=== PATIENT | male | born 1945 | race Caucasian/White ===

== ENCOUNTER 2021-10-06 09:04 | Outpatient (REF) | payer MEDICARE, SELFPAY ==
[2021-10-06 09:28] LABS: MANUAL DIFF FLAG NO
[2021-10-06 10:46] LABS: Basophils Percent Auto 0.3 % (0-2); Eosinophils Absolute Auto 0.1 X10*3/uL (0.0-0.4); Eosinophils Percent Auto 1.1 % (0-4); Hematocrit 44.2 % (42.0-52.0); Imm Gran Abs Auto 0.02 X10*3/uL (0.00-0.03); Imm Gran Pct Auto 0.3 % (0.0-0.4); Lymphocytes Absolute Auto 1.7 X10*3/uL (1.2-4.9); Lymphocytes Percent Auto 26.4 % (20-40); Mean Corpuscular HGB Conc 31.7 g/dl (31.0-36.0); Mean Corpuscular Hemoglobin 27.7 pg (27.0-33.0); Mean Corpuscular Volume 87.4 fL (80.0-98.0); Monocytes Absolute Auto 0.7 X10*3/uL (0.1-1.2); Monocytes Percent Auto 11.2 % (2-11); Neutrophils Absolute Auto 3.9 x10*3/uL (2.0-8.3); Neutrophils Percent Auto 60.7 % (45-73); Platelet Count 205 X10*3/uL (160-400); Red Blood Count 5.06 X10*6/uL (4.60-5.80); Red Cell Distribution Width 14.4 % (11.0-16.0); White Blood Count 6.4 X10*3/uL (4.8-10.8)
[2021-10-06 10:50] LABS: INTERNATIONAL NORM RATIO 1.5 (0.9-1.1); Prothrombin Time 17.1 SEC (9.9-13.0)
[2021-10-06 11:20] LABS: Alanine Aminotransferase 23 U/L (0-40); Albumin Level 3.9 g/dL (3.5-5.0); Alkaline Phosphatase 51 U/L (39-117); Anion Gap 12 (12-20); Aspartate Amino Transferase 23 U/L (5-37); Bilirubin Total 0.7 mg/dL (0.0-1.0); Blood Urea Nitrogen 20 mg/dL (9-16); Calcium 9.7 mg/dL (8.4-10.2); Carbon Dioxide 26 mmol/L (22-29); Chloride 107 mmol/L (96-108); Cholesterol 120 mg/dL; Estimated Glomerular Filt Rate 50; Glucose Fasting 82 mg/dL (60-99); HDL Cholesterol 52 mg/dL; LDL Cholesterol Calculated 55 mg/dl; Potassium 4.7 mmol/L (3.3-5.1); Sodium 140 mmol/L (135-145); Total Protein 6.5 g/dL (6.5-8.0); Triglycerides 65 mg/dL
[2021-10-06 11:31] LABS: Prostate Specific Antigen Scr 0.42 ng/mL (<0.05-4.0)
== END 2021-10-06 09:05 | disposition home or self-care (01) ==
LOC: HO.LAB 09:04
PROVIDERS: PCP Nurse Practitioner Family; Visit Provider Nurse Practitioner Family
DX: Z12.5 Encounter for screening for malignant neoplasm of prostate (principal); E78.5 Hyperlipidemia, unspecified; I48.91 Unspecified atrial fibrillation; I77.810 Thoracic aortic ectasia; I10 Essential (primary) hypertension; E78.00 Pure hypercholesterolemia, unspecified
CPT/HCPCS: 36415; 80053; 80061; 84153; 85025; 85610

== ENCOUNTER → 2021-12-01 09:09 | Outpatient (BNVA) | payer MEDICARE, SELFPAY | PROVIDERS: PCP Nurse Practitioner Family; Referring Provider Nurse Practitioner Family; Visit Provider Internal Medicine Cardiovascular Disease | DX: I48.19 Other persistent atrial fibrillation (principal) | CPT/HCPCS: 93005; 99202 ==

== ENCOUNTER → 2022-01-08 08:47 | Outpatient (REF) | payer MEDICARE, SELFPAY ==
--- NOTE | 2022-01-08 08:50 | CA_ITS ---
Transthoracic Echocardiogram Patient (Last, First, Middle): Troy Dunlap, Gender: Male Date of : 1945 Age: 76 Procedure Date: 01/08/2022 Procedure Type: Transthoracic Echocardiogram Location: OP Height: 170.18 cm Weight: 79.38 kg BSA: 1.91 m2 Heart Rate: bpm BP: 112 / 64 mmHg Needle Punch Machine Operator: RONAN Referring MD: Aren Morris MD Mud Trucker: Aren Morris MD Symptoms: I48.19 - Other persistent atrial fibrillation Study Quality: Adequate ECG Rhythm: Atrial Fibrillation Conclusions: - 1. Zjtl-jj-aqlafoko LV systolic dysfunction with LVEF of 40-45% 2. Mild biatrial enlargement 3. Mild aortic regurgitation and dzsw-bo-wxsvpoga mitral regurgitation 4. Normal RV systolic pressure 5. No pericardial effusion Findings Left Ventricle Normal left ventricular cavity size. There is normal left ventricular wall thickness. The left ventricular systolic function is mild to moderately decreased. The visually estimated ejection fraction is between 40-45%. Diastolic function is indeterminate on the basis of available data. Peak GLS is -13.1 % which is reduced. Right Ventricle Normal right ventricular cavity size. There is mild to moderately decreased right ventricular systolic function. Atria The left atrium is mildly dilated. There is no evidence of interatrial shunt. The right atrium is mildly dilated. Aortic Valve Normal aortic valve structure and function. There is no aortic valve stenosis. There is mild aortic valve regurgitation. Mitral Valve There is mild anterior and posterior mitral leaflet thickening. There is mild to moderate mitral valve regurgitation. There is no mitral valve stenosis. Pulmonic Valve The pulmonic valve was not well visualized. Tricuspid Valve Normal tricuspid valve structure. There is mild tricuspid valve regurgitation. The right ventricular systolic pressure is normal. The right ventricular systolic pressure is 24 mmHg. Normal right atrial pressure. There is no evidence of pulmonary hypertension. Great Vessels The pulmonary artery was not well visualized. There is mild dilatation of the ascending aorta measuring 4.40 cm. Venous The inferior vena cava is normal in size and collapses greater than 50% with inspiration. Pericardium/Pleural There is no evidence of pericardial effusion. Prior Study Comparison No prior study available for comparison. Measurements 2D Linear Measurements IVSd: 1.22 0.6-0.9/0.6-1.0 cm LVIDd: 5.21 3.9-5.3/4.2-5.9 cm LVIDd Index: 2.73 2.4-3.2/2.2-3.1 cm/m2 LVIDs: 3.73 2.0-3.6 cm LVPWd: 0.89 0.7-1.1 cm LA Diam: 4.00 2.7-3.8/3.0-4.0 cm LAIDs Index: 2.09 1.5-2.3 cm/m2 LV Mass: 261.00 67-162/88-224 g LV Mass Index: 136.65 43-95/49-115 g/m2 LVOT Diam: 2.00 3.0+(-)1.3 cm 2D Systolic Function EF 4C: 40.00 >55% EF 2C: 41.20 >55% EF BiP: 42.60 >55% Mitral Valve MR VTI: 1.67 Aortic Valve AoV Pk Matt: 1.12 AoV Mn Matt: 0.80 AoV VTI: 0.21 AoV Pk Grad: 5.00 Aov Mn Grad: 3.00 BROOKE Cont.VTI: 2.45 AI Pk Matt: 3.97 AI VTI: 2.44 AI Brooke: 1.84 AI Alias Matt: 0.39 AI RV - PISA: 37.00 ERO - PISA: 15.00 LVOT LVOT Pk Matt: 0.84 LVOT Mn Matt: 0.66 LVOT VTI: 0.16 LVOT Pk Grad: 3.00 LVOT Mn Grad: 2.00 LVOT Diam: 2.00 LVOT Area: 3.14 Right Ventricle TAPSE (mm): 13.20 TVS' Matt: 9.14 Tricuspid Valve TR Pk Matt: 2.28 TR Pk Grad: 21.00 RA Press: 3.00 RVSP: 24.00 Great Vessels Aorta Sinus of Valsalva: 3.50 2.0-3.5 cm Ao Asc: 4.40 2.1-3.4 cm Pulmonary Valve PV Pk Matt: 0.57 Peak PV Grad: 1.00 Updated in Other Vendor System with Status of Final Aren Morris MD electronically signed on 01/09/2022 3:38:27 PM with status of Final
== END ==
LOC: HO.CARD 08:47
PROVIDERS: Visit Provider Internal Medicine Cardiovascular Disease
DX: I48.19 Other persistent atrial fibrillation (principal)
CPT/HCPCS: 93306; 93356

== ENCOUNTER → 2022-01-19 13:05 | Outpatient (BNVA) | payer MEDICARE, SELFPAY | PROVIDERS: PCP Nurse Practitioner Family; Referring Provider Nurse Practitioner Family; Visit Provider Internal Medicine Cardiovascular Disease | DX: I48.19 Other persistent atrial fibrillation (principal); I42.9 Cardiomyopathy, unspecified; I77.810 Thoracic aortic ectasia; R07.9 Chest pain, unspecified | CPT/HCPCS: 99212 ==

== ENCOUNTER 2022-01-27 09:48 | Day surgery (SDC) | payer MEDICARE, SELFPAY ==
--- NOTE | 2022-01-26 11:39 | HO.ANESPROP2 ---
Documented by User: Fanny Sy NP 01/29/22 14:43 HPI - Anesthesia Eval Consult details Narrative: 76yo M for Cardioversion Eliquis for afib PMFSH Active Problems Active Problems: All Active Problems (Updated 01/19/22 @ 13:36 by Aren Morris MD) Ascending aorta dilation (Acute) Persistent atrial fibrillation (Acute) Cardiomyopathy (Acute) Onychomycosis (Acute) Abnormal skin growth (Acute) Physical exam (Acute) BPH (benign prostatic hyperplasia) (Acute) Open-angle glaucoma (Acute) Hyperlipidemia (Acute) Past Medical History Medical History Ascending aorta dilation Persistent atrial fibrillation Surgical History Surgical History History of hernia repair Social History Social History (Updated 01/27/22 @ 11:06 by Ara Coy MD) Housing: House Alcohol intake: never Patient Tobacco Use Status: Never used Tobacco e-Cigarette/Vaping Use: Former Use Second Hand Smoke Exposure: No Substance Use Type: Marijuana service: No Current occupational status: retired Current occupational exposures/hazards: No Cognitive needs: No Hearing needs: No Vision needs: Yes Meds Allergies Allergy/AdvReac Type Severity Reaction Status Date / Time No Known Allergies Allergy Verified 10/29/21 15:25 Exam Exam Date and Time: January 26, 2022 1139 Pertinent Lab Results Pertinent Lab Results: Laboratory Tests 10/06/21 10/06/21 09:27 09:27 WBC 6.4 Hgb 14.0 Hct 44.2 Plt Count 205 Sodium 140 Potassium 4.7 Chloride 107 Carbon Dioxide 26 BUN 20 H Creatinine 1.38 Narrative Narrative: ECHO 12/2021 Conclusions: - 1. Kggl-ft-hipsciul LV systolic dysfunction with LVEF of 40-45% 2. Mild biatrial enlargement ? 3. Mild aortic regurgitation and zawb-aw-rtgzmdxo mitral ? regurgitation? 4. Normal RV systolic pressure ? 5. No pericardial effusion ? ? EKG 11/2021 atrial fibrillation with slow ventricular response at 55 beats per minute with poor R-wave progression Assessment and Plan Assessment Anesthesia Assessment: Chart Reviewed Documented by User: Ara Coy MD 01/27/22 11:12 HPI - Anesthesia Eval Consult details Narrative: 76yo M for Cardioversion Eliquis for afib. Last dose this am PMFSH Past Medical History Medical History Ascending aorta dilation Persistent atrial fibrillation Family History Family history of problems with anesthesia: No Surgical History Surgical History History of hernia repair History of Problems with Anesthesia: No Social History Social History (Updated 01/27/22 @ 11:06 by Ara Coy MD) Housing: House Alcohol intake: never Patient Tobacco Use Status: Never used Tobacco e-Cigarette/Vaping Use: Former Use Second Hand Smoke Exposure: No Substance Use Type: Marijuana service: No Current occupational status: retired Current occupational exposures/hazards: No Cognitive needs: No Hearing needs: No Vision needs: Yes Meds Allergies Allergy/AdvReac Type Severity Reaction Status Date / Time No Known Allergies Allergy Verified 10/29/21 15:25 Exam Height,Weight and Vital Signs: Height 5 ft 7 in Weight 79.379 kg Vital Signs Temp Pulse Resp BP Pulse Ox O2 Del Method 01/27/22 10:15 97.1 F 60 16 105/63 96 Room Air Airway Mallampati Class: II TM Dist: >3cm Neck ROM: Full Loose/Missing/Broken Teeth: No (No loose or broken teeth per patient) Heart: Irregularly irregular Lungs: CTAB Assessment and Plan Assessment Anesthesia Assessment: Anesthesia Plan Discussed Final Anesthetic Review Family History of Problems with Anesthesia: No History of Problems with Anesthesia: No NPO: Yes ASA Class: III Final Preanesthetic Review: No Changes in Pt Med Stat, Meds/Allgs Chart Reviewed, Consent Obtained/Reviewed and Anes Risks/Benef Reviewed Patient Risk: Intermediate Procedure Risk: Intermediate Assessment/Block/Sedation in SS: Assess/Block/Sedation-SS Anesthetic Plan Anesthetic Plan: GA Disposition: Standard PACU
[2022-01-27] VITALS (9 sets, daily range): BP systolic 83–112; BP diastolic 53–70; PULSE 48–69; RESP 16–20; TEMP 36.2–36.7; O2SAT 94–100; BMI 27.3
--- NOTE | 2022-01-27 10:35 | MHC.SHP ---
Pre-Procedural Eval Section A Date of Service: 01/27/22 The patient is an INPATIENT: No Changes since office visit: Yes Patient answered all questions; No Cold of Flu in the past 2 weeks, No New Medical Problems and No Changes in Medication The History & Physical has been completed within 30 days and I have reviewed it.: Yes Section B Chief Complaint: afib Allergies: Allergies Allergy/AdvReac Type Severity Reaction Status Date / Time No Known Allergies Allergy Verified 10/29/21 15:25 Plan I have reviewed the history and physical and performed a pertinent physical examination on my patient. No changes have occurred unless specified.
[2022-01-27] MEDS: Lactated Ringers 1,000 ML 50 ML IVCONT (10:37)
--- NOTE | 2022-01-27 11:44 | ECG_ITS ---
Test Reason : S/P CARDIOVERSION Blood Pressure : / mmHG Vent. Rate : 069 BPM Atrial Rate : 108 BPM P-R Int : 000 ms QRS Dur : 088 ms QT Int : 434 ms P-R-T Axes : 041 -33 005 degrees QTc Int : 465 ms Normal sinus rhythm with Premature atrial complexes Left axis deviation Minimal voltage criteria for LVH, may be normal variant ( R in aVL ) Cannot rule out Anterior infarct , age undetermined Abnormal ECG No previous ECGs available Referred By: Aren Morris Electronically Signed By:AREN MORRIS MD
--- NOTE | 2022-01-27 11:45 | HO.CARDIVERS ---
Cardioversion Procedure Note Cardioversion Date of Procedure: 01/27/2022 Ordering Provider: Myself Performing Provider: Myself Indication for Procedure: Persistent atrial fibrillation Pre-Op Diagnosis: Same Post-Op Diagnosis: Sinus rhythm Performed with Transesophageal Echo: No History: See my office note Consent: Verbal and Written consent was obtained from the patient before starting and after confirming oral anticoagulation use. The patient was made aware of the risk of synchronized cardioversion including benefits and alternatives Procedure: After consent obtained, cardioversion pads were attached antral posterior configuration and the patient was sedated by the anesthesia team. Once adequate sedation achieved, patient was delivered 200 joules of biphasic synchronized energy in anteroposterior configuration Complications: None Impression: Successful conversion to sinus rhythm Recommendations: 1. 12 lead EKG 2. Continue full oral anticoagulation 3. Follow up in the clinic after Holter monitor
== END 2022-01-27 14:00 | disposition home or self-care (01) ==
PROVIDERS: PCP Nurse Practitioner Family; Visit Provider Internal Medicine Cardiovascular Disease
PROC: 5A2204Z Restoration of Cardiac Rhythm, Single (ICD-10-PCS; principal; 2022-01-27 11:30)
DX: I48.19 Other persistent atrial fibrillation (principal); I42.9 Cardiomyopathy, unspecified; I77.810 Thoracic aortic ectasia; Z79.01 Long term (current) use of anticoagulants; Z79.899 Other long term (current) drug therapy
CPT/HCPCS: 92960; 93005

== ENCOUNTER → 2022-02-02 08:42 | Outpatient (REF) | payer MEDICARE, SELFPAY ==
--- NOTE | ~2022-02-02 | NM_ITS ---
EXERCISE MYOCARDIAL PERFUSION STUDY INDICATION: Atrial fibrillation, cardiomyopathy, assess for coronary disease and ischemia TECHNIQUE: The patient was brought in for an exercise perfusion study on 02/02/2022. Patient performed exercise as per Deshaun protocol and was injected 25 mCi of sestamibi once target heart rate was achieved. Images were obtained using the SPECT gamma camera interlaced with the gating device. Images were obtained in supine position. Resting perfusion study was performed on 02/03/2022. Patient was administered 25 mCi of sestamibi intravenously at rest. Images were then obtained in supine position. Total DLP 95mGy-cm. Images were processed with the software and compared side to side in short axis, horizontal long axis and vertical long axis views. FINDINGS: Raw images were reviewed. The stress perfusion study showed slightly diminished tracer uptake along the inferior wall. There is improvement with CT attenuation correction and hence probably from diaphragmatic attenuation artifact. The gated study shows normal LV systolic function with calculated LVEF of 64%. LV cavity is normal in size. The gated study shows normal wall thickening and contraction of segments. Resting study shows no significant perfusion abnormality. Gating at rest reveals normal wall motion with ejection fraction at 53%. The findings are consistent with no definite reversible or fixed perfusion defects. NM/NM cardiolite stress test IMPRESSION: 1. Myocardial perfusion imaging study shows likely normal myocardial perfusion. 2. Gated LVEF is 64% during stress and 53% during rest. 3. Transient ischemic dilatation not present. EKG component of the test reported separately.
--- NOTE | 2022-02-02 08:44 | CA_ITS ---
Acquisition Time: 2022-02-02 09:56:54 Total Exercise Time: 00:07:04 Test Indications: HX AFIB Medications: Protocol: TAL Max HR: 133 BPM 91% of Pred: 146 BPM Max BP: 170/074 mmHG Max Work Load: 8.6 METS Exercise stress test with exercise with exercise 7 min 4 sec of Tal protocol, achieving 91% MPHR, with mild sob, no chest discomfort, with isolated PACs, PVCs, ventricular cuplets which are increased in stage 3 and early recovery, with normotensive response to exercise, without EKG changes meeting criteria for ischemia. Nuclear images pending. Test reviewed with Dr Morris. Referred By: Aren Morris Overread By: BRAYAN MONGE
== END ==
LOC: HO.CARD 08:42
PROVIDERS: PCP Nurse Practitioner Family; Visit Provider Internal Medicine Cardiovascular Disease
DX: R07.9 Chest pain, unspecified (principal); I48.19 Other persistent atrial fibrillation; I42.9 Cardiomyopathy, unspecified
CPT/HCPCS: 78452; 93017; A9500; J0280; J2785

== ENCOUNTER → 2022-02-10 14:04 | Outpatient (REF) | payer MEDICARE, SELFPAY ==
--- NOTE | 2022-02-10 14:06 | HM_ITS ---
* Total monitoring time 2 days and 23 hours. * Underlying rhythm is sinus. Average rate 56/Min. Range 36 to 113/Min. * [place]itz 1 second-degree heart block during sleep hours. * Occasional supraventricular ectopy. [place] of 1.6%. * Rare ventricular ectopy. Minimal burden. One run of 4 beats. * No patient events. MTDD
== END ==
LOC: HO.CARD 14:04
PROVIDERS: PCP Nurse Practitioner Family; Visit Provider Internal Medicine Cardiovascular Disease
DX: I48.19 Other persistent atrial fibrillation (principal)
CPT/HCPCS: 93242

== ENCOUNTER → 2022-04-14 14:06 | Outpatient (BNVA) | payer MEDICARE, SELFPAY | PROVIDERS: PCP Nurse Practitioner Family; Referring Provider Nurse Practitioner Family; Visit Provider Nurse Practitioner Family | DX: I48.19 Other persistent atrial fibrillation (principal); I77.810 Thoracic aortic ectasia; I42.9 Cardiomyopathy, unspecified | CPT/HCPCS: 93005; 99212 ==

== ENCOUNTER → 2022-05-25 15:35 | Outpatient (REF) | payer MEDICARE, SELFPAY ==
--- NOTE | 2022-05-25 15:43 | CA_ITS ---
Transthoracic Echocardiogram Patient (Last, First, Middle): Troy Dunlap R Gender: Male Date of : 1945 Age: 76 Procedure Date: 05/25/2022 Procedure Type: Transthoracic Echocardiogram Location: OP Height: 170.18 cm Weight: 82.56 kg BSA: 1.94 m2 Heart Rate: bpm BP: 118 / 60 mmHg Coroner: VH Referring MD: Tawnya Leiva HEEL SANDER RUBBERVargas Symptoms: I42.9 - Cardiomyopathy, unspecified Study Quality: Good ECG Rhythm: Sinus Conclusions: - The left ventricular systolic function is normal. The visually estimated ejection fraction is between 55-60%. - The basal inferior segment is hypokinetic. Findings Left Ventricle Normal left ventricular cavity size. There is mildly increased left ventricular wall thickness. The left ventricular systolic function is normal. The visually estimated ejection fraction is between 55-60%. LV peak GLS -17.8%. Wall Motion Rest Echo Findings The basal inferior segment is hypokinetic. Right Ventricle Normal right ventricular cavity size and systolic function. Venous The inferior vena cava is normal in size and collapses greater than 50% with inspiration. Prior Study Comparison Changes noted compared to prior study dated: 01/08/2022. Improved LVEF. See comment on wall motion. Measurements 2D Linear Measurements IVSd: 1.12 0.6-0.9/0.6-1.0 cm LVIDd: 5.22 3.9-5.3/4.2-5.9 cm LVIDd Index: 2.69 2.4-3.2/2.2-3.1 cm/m2 LVIDs: 3.51 2.0-3.6 cm LVPWd: 1.12 0.7-1.1 cm LV Mass: 283.84 67-162/88-224 g LV Mass Index: 146.31 43-95/49-115 g/m2 LVOT Diam: 2.00 3.0+(-)1.3 cm 2D Systolic Function EF 4C: 55.60 >55% EF 2C: 51.40 >55% EF BiP: 53.40 >55% LVOT LVOT Pk Matt: 1.13 LVOT Mn Matt: 0.72 LVOT VTI: 0.27 LVOT Pk Grad: 5.00 LVOT Mn Grad: 3.00 LVOT Diam: 2.00 LVOT Area: 3.14 Right Ventricle TAPSE (mm): 25.00 TVS' Matt: 10.00 Updated in Other Vendor System with Status of Final Archie Gray MD electronically signed on 05/26/2022 12:55:57 PM with status of Final
== END ==
LOC: HO.CARD 15:35
PROVIDERS: PCP Nurse Practitioner Family; Visit Provider Nurse Practitioner Family
DX: I42.9 Cardiomyopathy, unspecified (principal)
CPT/HCPCS: 93308; 93356

== ENCOUNTER 2022-07-07 08:56 | Outpatient (REF) | payer MEDICARE, SELFPAY ==
[2022-07-07 10:18] LABS: Hematocrit 44.5 % (42.0-52.0); Hemoglobin 14.2 g/dl (14.0-18.0); Mean Corpuscular HGB Conc 31.9 g/dl (31.0-36.0); Mean Corpuscular Hemoglobin 28.9 pg (27.0-33.0); Mean Corpuscular Volume 90.4 fL (80.0-98.0); Mean Platelet Volume 10.7 fL (9.4-12.4); Platelet Count 205 X10*3/uL (160-400); Red Blood Count 4.92 X10*6/uL (4.60-5.80); Red Cell Distribution Width 12.5 % (11.0-16.0); White Blood Count 6.5 X10*3/uL (4.8-10.8)
[2022-07-07 11:53] LABS: Alanine Aminotransferase 17 U/L (0-40); Albumin Level 4.3 g/dL (3.5-5.0); Alkaline Phosphatase 73 U/L (39-117); Anion Gap 12 (12-20); Aspartate Amino Transferase 23 U/L (5-37); Bilirubin Total 0.7 mg/dL (0.0-1.0); Blood Urea Nitrogen 21 mg/dL (9-16); Calcium 9.5 mg/dL (8.4-10.2); Carbon Dioxide 27 mmol/L (22-29); Chloride 106 mmol/L (96-108); Cholesterol 135 mg/dL; Estimated Glomerular Filt Rate > 60; Glucose Fasting 89 mg/dL (60-99); HDL Cholesterol 59 mg/dL; LDL Cholesterol Calculated 66 mg/dl; Potassium 4.9 mmol/L (3.3-5.1); Sodium 140 mmol/L (135-145); Total Protein 7.2 g/dL (6.5-8.0); Triglycerides 52 mg/dL
[2022-07-07 12:15] LABS: TSH reflex Free T4 1.89 uIU/mL (0.32-4.0); Vitamin B12 666 pg/mL (200-900); Vitamin D 25-OH Total 32.7 ng/mL (>30)
== END 2022-07-07 08:57 | disposition home or self-care (01) ==
LOC: HO.LAB 08:56
PROVIDERS: PCP Nurse Practitioner Family; Visit Provider Nurse Practitioner Family
DX: I48.19 Other persistent atrial fibrillation (principal); N40.0 Benign prostatic hyperplasia without lower urinary tract symptoms; E78.5 Hyperlipidemia, unspecified
CPT/HCPCS: 36415; 80053; 80061; 82306; 82607; 82746; 84443; 85027

== ENCOUNTER → 2022-09-13 14:36 | Outpatient (BNVA) | payer MEDICARE, SELFPAY | PROVIDERS: PCP Nurse Practitioner Family; Referring Provider Nurse Practitioner Family; Visit Provider Internal Medicine Cardiovascular Disease | DX: I77.810 Thoracic aortic ectasia (principal); I48.19 Other persistent atrial fibrillation; I42.9 Cardiomyopathy, unspecified; Z98.890 Other specified postprocedural states | CPT/HCPCS: 99212 ==

== ENCOUNTER 2023-02-23 07:13 | Outpatient (REF) | payer MEDICARE, SELFPAY ==
[2023-02-23 07:29] LABS: MANUAL DIFF FLAG NO
[2023-02-23 08:19] LABS: Basophils Percent Auto 0.4 % (0-2); Eosinophils Absolute Auto 0.1 X10*3/uL (0.0-0.4); Eosinophils Percent Auto 2.5 % (0-4); Hematocrit 40.7 % (42.0-52.0); Hemoglobin 13.6 g/dl (14.0-18.0); Imm Gran Abs Auto 0.02 X10*3/uL (0.00-0.03); Imm Gran Pct Auto 0.4 % (0.0-0.4); Lymphocytes Absolute Auto 1.3 X10*3/uL (1.2-4.9); Lymphocytes Percent Auto 28.6 % (20-40); Mean Corpuscular HGB Conc 33.4 g/dl (31.0-36.0); Mean Corpuscular Hemoglobin 29.1 pg (27.0-33.0); Mean Platelet Volume 9.9 fL (9.4-12.4); Monocytes Absolute Auto 0.6 X10*3/uL (0.1-1.2); Monocytes Percent Auto 12.5 % (2-11); Neutrophils Absolute Auto 2.5 x10*3/uL (2.0-8.3); Neutrophils Percent Auto 55.6 % (45-73); Platelet Count 192 X10*3/uL (160-400); Red Blood Count 4.68 X10*6/uL (4.60-5.80); Red Cell Distribution Width 13.7 % (11.0-16.0); White Blood Count 4.5 X10*3/uL (4.8-10.8)
[2023-02-23 08:59] LABS: Alanine Aminotransferase 17 U/L (0-40); Alkaline Phosphatase 57 U/L (39-117); Anion Gap 9 (12-20); Aspartate Amino Transferase 20 U/L (5-37); Bilirubin Total 0.6 mg/dL (0.0-1.0); Blood Urea Nitrogen 16 mg/dL (9-16); Calcium 9.2 mg/dL (8.4-10.2); Carbon Dioxide 26 mmol/L (22-29); Chloride 109 mmol/L (96-108); Cholesterol 170 mg/dL (<200); Estimated Glomerular Filt Rate > 60; Glucose Fasting 96 mg/dL (60-99); HDL Cholesterol 50 mg/dL (>40); LDL Cholesterol Calculated 110 mg/dL (<100); Potassium 4.3 mmol/L (3.3-5.1); Sodium 140 mmol/L (135-145); Total Protein 6.8 g/dL (6.5-8.0); Triglycerides 54 mg/dL (<150)
[2023-02-23 09:10] LABS: Prostate Specific Antigen 0.14 ng/mL (<0.05-4.0)
[2023-02-23 09:14] LABS: TSH reflex Free T4 2.87 uIU/mL (0.32-4.0); Vitamin D 25-OH Total 46.1 ng/mL (>30)
== END 2023-02-23 07:14 | disposition home or self-care (01) ==
LOC: HO.LAB 07:13
PROVIDERS: PCP Nurse Practitioner Family; Visit Provider Nurse Practitioner Family
DX: Z12.5 Encounter for screening for malignant neoplasm of prostate (principal); I48.19 Other persistent atrial fibrillation; E78.5 Hyperlipidemia, unspecified; N40.0 Benign prostatic hyperplasia without lower urinary tract symptoms; I42.9 Cardiomyopathy, unspecified
CPT/HCPCS: 36415; 80053; 80061; 82306; 84153; 84443; 85025

== ENCOUNTER → 2023-03-16 13:42 | Outpatient (REF) | payer MEDICARE, SELFPAY ==
--- NOTE | 2023-03-16 13:45 | CA_ITS ---
Transthoracic Echocardiogram Patient (Last, First, Middle): Troy Dunlap R Gender: Male Date of : 1945 Age: 77 Procedure Date: 03/16/2023 Procedure Type: Transthoracic Echocardiogram Location: OP Height: 170.18 cm Weight: 79.38 kg BSA: 1.91 m2 Heart Rate: 60 bpm BP: 104 / 60 mmHg Airplane Patrol Pilot: RONAN/JOHN Referring MD: Aren Morris MD Symptoms: I42.9 - Cardiomyopathy, unspecified Study Quality: Adequate ECG Rhythm: Sinus Conclusions: - The left ventricular systolic function is low normal. The calculated ejection fraction is 53% by biplane method. - The basal inferior segment is hypokinetic. - There is mild aortic valve regurgitation. - There is moderate dilatation of the ascending aorta measuring 4.50 cm. Findings Left Ventricle Normal left ventricular cavity size. The left ventricular systolic function is low normal. The calculated ejection fraction is 53% by biplane method. Evidence suggests grade I (mild) diastolic dysfunction. There is mild septal asymmetric hypertrophy. Wall Motion Rest Echo Findings The basal inferior segment is hypokinetic. Right Ventricle Mildly increased right ventricular cavity size. There is normal right ventricular systolic function. Atria Both atria are normal in size. Aortic Valve There is a normal trileaflet aortic valve. There is no aortic valve stenosis. There is mild aortic valve regurgitation. Mitral Valve The mitral valve appears normal. There is trace mitral valve regurgitation. There is no mitral valve stenosis. Pulmonic Valve The pulmonic valve is likely normal. Tricuspid Valve There is no tricuspid valve regurgitation. There is no evidence of pulmonary hypertension. Great Vessels The sinuses of valsalva is normal in size. There is moderate dilatation of the ascending aorta measuring 4.50 cm. Venous The inferior vena cava is normal in size and collapses greater than 50% with inspiration. Pericardium/Pleural There is no evidence of pericardial effusion. Prior Study Comparison Changes noted compared to prior study dated: 05/25/2022. see comment on ascending aorta. Measurements 2D Linear Measurements IVSd: 1.16 0.6-0.9/0.6-1.0 cm LVIDd: 5.16 3.9-5.3/4.2-5.9 cm LVIDd Index: 2.70 2.4-3.2/2.2-3.1 cm/m2 LVIDs: 3.79 2.0-3.6 cm LVPWd: 1.01 0.7-1.1 cm LA Diam: 4.10 2.7-3.8/3.0-4.0 cm LAIDs Index: 2.15 1.5-2.3 cm/m2 LV Mass: 266.70 67-162/88-224 g LV Mass Index: 139.63 43-95/49-115 g/m2 LVOT Diam: 2.10 3.0+(-)1.3 cm 2D Systolic Function EF 4C: 46.50 >55% EF 2C: 58.90 >55% EF BiP: 52.90 >55% Mitral Valve MV Pk E: 0.77 MV PK A: 0.50 MV Decel Time: 223.00 E/A: 1.50 E'Lateral: 7.72 E'Medial: 4.57 E/E' Med: 16.90 E/E' Lat: 10.00 PHT: 65.00 MVA PHT: 3.38 Decel Bell: 3.46 Aortic Valve AoV Pk Matt: 1.42 AoV Mn Matt: 1.01 AoV VTI: 0.34 AoV Pk Grad: 8.00 Aov Mn Grad: 5.00 BROOKE Cont.VTI: 2.35 AI Pk Matt: 3.98 AI Bell: 1.72 LVOT LVOT Pk Matt: 1.05 LVOT Mn Matt: 0.69 LVOT VTI: 0.23 LVOT Pk Grad: 4.00 LVOT Mn Grad: 2.00 LVOT Diam: 2.10 LVOT Area: 3.46 Diastolic Function MV Pk E: 0.77 MV Pk A: 0.50 E/A: 1.50 E'Medial: 4.57 E/E' Med: 16.90 E' Laterial: 7.72 E/E' Lat: 10.00 Right Ventricle TAPSE (mm): 19.80 TVS' Matt: 11.70 Tricuspid Valve TR Pk Matt: 2.33 TR Pk Grad: 22.00 RA Press: 3.00 RVSP: 25.00 Great Vessels Aorta Sinus of Valsalva: 3.40 2.0-3.5 cm Ao Asc: 4.50 2.1-3.4 cm Pulmonary Valve PV Pk Matt: 0.73 Peak PV Grad: 2.00 Updated in Other Vendor System with Status of Final Arcihe Gray MD electronically signed on 03/17/2023 10:31:03 AM with status of Final
== END ==
LOC: HO.CARD 13:42
PROVIDERS: PCP Nurse Practitioner Family; Visit Provider Internal Medicine Cardiovascular Disease
DX: I42.9 Cardiomyopathy, unspecified (principal)
CPT/HCPCS: 93306

== ENCOUNTER → 2023-03-16 13:45 | Outpatient (BNV) | payer MEDICARE, SELFPAY | PROVIDERS: PCP Nurse Practitioner Family; Visit Provider Internal Medicine | DX: I35.1 Nonrheumatic aortic (valve) insufficiency (principal); I42.9 Cardiomyopathy, unspecified | CPT/HCPCS: 93306 ==

== ENCOUNTER 2023-03-23 08:33 | Outpatient (AMB) | payer MEDICARE, SELFPAY ==
[2023-03-23 08:40] VITALS: BP 118/68; PULSE 62; O2SAT 97; BMI 27.7
--- NOTE | 2023-03-23 08:40 | A.OFFPC_ITS ---
Vital Signs 03/23/23 08:40 Height 5 ft 7 in Weight 177 lb 0.4 oz BMI 27.7 BP 118/68 Blood Pressure Location Lt brachial Position Sitting Pulse 62 Pulse Source Pulse Oximeter Pulse Oximetry (%) 97 Oxygen Delivery Method Room Air Intake Visit Reasons: F/U HLD, afib, BPH Allergies No Known Allergies Allergy (Verified 11/16/22 09:26) Medication List - Last Reconciled 03/23/23 by GABINO Hurt apixaban (Eliquis) 5 mg PO BID 90 days brimonidine 0.1% (Alphagan P) 2 drps ophthalmic (eye) BID dorzolamide-timolol 22.3-6.8 mg/mL 1 drp ophthalmic (eye) BID finasteride 5 mg PO DAILY hydrocortisone 2.5% 1 appl topical BID PRN latanoprost 0.005% 1 drp ophthalmic (eye) QPM lidocaine HCl 2% (Lidocaine Viscous) 1 appl mucous membrane BID PRN 14 days rosuvastatin 10 mg PO DAILY tamsulosin 0.4 mg PO DAILY Tobacco use date assessed: 11/16/22 Fall risk assessment: No Falls in past year Last assessed Fall Risk: 03/23/23 Dental Screening Dental Screen Date: 03/23/23 Did you have a dental visit in the last 12 months?: No Did you have a dental problem in the last 6 months where you did not have access to dental care?: No HPI F/U HLD, afib, BPH HPI Details Patient is a 77-year-old male presents today for a routine follow-up.? Medical history significant for AFib - status post cardioversion - followed by [facility], cardiomyopathy,? BPH, hyperlipidemia, and open angle glaucoma-followed by Dr. Pascual.? Patient denies shortness of breath or chest pain. Patient reports intermittent right hip pain, reports about 2 years ago he did have right hip injection, he will notify office if he would like referral to see orthopedics for this, does not take anything for pain. Patient reports that at times he forgets to take rosuvastatin, encouraged compliance with cholesterol medication.? [facility] Medical History Tongue lesion Persistent atrial fibrillation Ascending aorta dilation Surgical History History of hernia repair Social History Housing: House Alcohol intake: never Patient Tobacco Use Status: Never used Tobacco e-Cigarette/Vaping Use: Former Use Second Hand Smoke Exposure: No Substance Use Type: Marijuana service: No Current occupational status: retired Current occupational exposures/hazards: No Cognitive needs: No Hearing needs: No Vision needs: Yes Questionnaire PHQ-9 Over the last 2 weeks, how often have you been bothered by any of the following problems? 1. Little interest or pleasure in doing things: not at all 2. Feeling down, depressed, or hopeless: not at all 3. Trouble falling or staying asleep, or sleeping too much: not at all 4. Feeling tired or having little energy: not at all 5. Poor appetite or overeating: not at all 6. Feeling bad about yourself - or that you are a failure or have let yourself or your family down: not at all 7. Trouble concentrating on things, such as reading the newspaper or watching television: not at all 8. Moving or speaking so slowly that other people could have noticed. Or the opposite - being so fidgety or restless that you have been moving around a lot more than usual: not at all 9. Thoughts that you would be better off or of hurting yourself in some way: not at all Total score: 0 Depression Screening Interpretation: Negative 91552 - PHQ-9 Billing: Yes Source: Developed by Drs. David Ortiz, John Dillon and colleagues, with an educational evelina from [employer]. Thrive Questionnaire Date Thrive assessed: 07/15/22 AUDIT C Alcohol Use Questionnaire (AUDIT-C) 1. How often do you have a drink containing alcohol?: Never 2. How many drinks containing alcohol do you have on a typical day when you are drinking?: 1 or 2 3. How often do you have six or more drinks on one occasion?: Never Total Score: 0 Score Reviewed/Action Taken: No ANA LILIA-7 AMB Questionnaire ANA LILIA-7 Date ANA LILIA - 7 assessed: 11/16/22 Source: Developed by Drs. David Ortiz, John Dillon and colleagues, with an educational evelina from [employer]. Review of Systems Const Denies body aches, Denies chills, Denies fever(s) and Denies headache(s) Eyes Denies change in vision ENT Denies dizziness, Denies otalgia, Denies headache(s), Denies nasal discharge, Denies sinus pain and Denies sore throat Card Denies chest pain, Denies edema, Denies lightheadedness and Denies dyspnea Resp Denies chest congestion, Denies cough and Denies dyspnea GI Denies constipation, Denies diarrhea, Denies nausea and Denies vomiting Denies dysuria Musc Reports back pain, Denies myalgias and Reports arthralgias Skin/Breast Denies lesions and Denies rash Neuro Denies dizziness and Denies headache(s) Physical exam (Primary Care) Vital Signs: Last Vital Signs Pulse 62 03/23/23 08:40 BP 118/68 03/23/23 08:40 Pulse Ox 97 03/23/23 08:40 Oxygen Delivery Method Room Air 03/23/23 08:40 BMI result Body Mass Index 27.7 Tobacco/Smoking Status: Tobacco use Status Tobacco use date assessed 11/16/22 03/23/23 08:45 Patient Tobacco Use Status Never used Tobacco 03/23/23 08:45 e-Cigarette/Vaping Use Former Use 03/23/23 08:45 PHQ-9: PHQ-9 Score PHQ-9: Total score 0 03/23/23 08:45 Depression Screening Interpretation: Negative Thrive Assessment: Date of Thrive Assessment Date Thrive assessed 07/15/22 03/23/23 08:45 Const General: cooperative and no acute distress Orientation/consciousness: patient oriented x3 HENMT Head: Yes normocephalic and Yes atraumatic Face and sinus: Yes sinuses nontender Mouth: oropharynx normal and moist mucous membranes Throat: Yes posterior oropharynx normal Eyes General: appearance normal, both eyes and all related structures Neck Neck: Yes normal visual inspection and Yes full ROM Resp Effort & Inspection: normal respiratory effort and able to speak in complete sentences Auscultation: clear to auscultation bilaterally, no crackles, no rales, no rhonchi and no wheezes Cardio Rate: regular rate Rhythm: regular rhythm Heart sounds: S1 normal heart sound present, S2 normal heart sound present and no murmurs GI Auscultation: normal bowel sounds Skin General skin exam: no rashes or lesions noted Neuro General: patient oriented x3 Gait exam (Neuro): Normal gait present Extrem General: Yes full ROM and No edema Assessment and Plan Assessment & Plan (1) BPH (benign prostatic hyperplasia): Code(s): N40.0 - Benign prostatic hyperplasia without lower urinary tract symptoms Plan: Tamsulosin 0.4 mg daily Finasteride 5 mg daily (2) Hyperlipidemia: Code(s): E78.5 - Hyperlipidemia, unspecified Plan: LDL 110 01/2023 Rosuvastatin 10 mg daily - reinforced compliance Low-cholesterol diet (3) Paroxysmal atrial fibrillation: Code(s): I48.0 - Paroxysmal atrial fibrillation Plan: Eliquis 5 mg b.i.d. Continue to follow-up with cardiology Dr. Morris Patient denies shortness of breath or chest pain Orders: Orders Lipid Panel 3 Months E78.5 - Hyperlipidemia, unspecified Comprehensive [place]. Panel Fast 3 Months E78.5 - Hyperlipidemia, unspecified Complete Blood Count Auto Diff 3 Months E78.5 - Hyperlipidemia, unspecified Medications: Refilled finasteride 5 mg PO DAILY 90 tabs 1RF N40.0 - Benign prostatic hyperplasia without lower urinary tract symptoms Discontinued lidocaine HCl 2% (Lidocaine Viscous) swish and spit out Discontinued Reason: Patient no longer taking 1 appl mucous membrane BID 14 days PRN 100 mL 0RF pain K14.8 - Other diseases of tongue Coding Level of Care Code Est Pt Level 4 (79771) Diagnoses BPH (benign prostatic hyperplasia) N40.0 Hyperlipidemia E78.5 Paroxysmal atrial fibrillation I48.0
== END 2023-03-23 09:14 | disposition home or self-care (01) ==
PROVIDERS: Visit Provider Nurse Practitioner Family
DX: N40.0 Benign prostatic hyperplasia without lower urinary tract symptoms (principal); E78.5 Hyperlipidemia, unspecified; I48.0 Paroxysmal atrial fibrillation
CPT/HCPCS: 99214

== ENCOUNTER 2023-03-28 10:33 | Outpatient (AMB) | payer MEDICARE, SELFPAY ==
[2023-03-28 10:55] VITALS: BP 120/70; PULSE 69; BMI 27.3
--- NOTE | 2023-03-28 10:55 | MHC.OFFVIS ---
Intake Vital Signs 03/28/23 10:55 Height 5 ft 7 in Weight 174 lb 2.643 oz BMI 27.3 BP 120/70 Blood Pressure Location Lt brachial Position Sitting Pulse 69 Intake Visit Reasons: 6 month f/u after an echo Intake Note: 6 month follow-up after echo feeling good ? didn't know he had a [employer] Senior Application Security Consultant Required: No Allergies No Known Allergies Allergy (Verified 11/16/22 09:26) Medication List - Last Reconciled 03/28/23 by Aren Morris MD apixaban (Eliquis) 5 mg PO BID 90 days brimonidine 0.1% (Alphagan P) 2 drps ophthalmic (eye) BID dorzolamide-timolol 22.3-6.8 mg/mL 1 drp ophthalmic (eye) BID finasteride 5 mg PO DAILY hydrocortisone 2.5% 1 appl topical BID PRN latanoprost 0.005% 1 drp ophthalmic (eye) QPM rosuvastatin 10 mg PO DAILY tamsulosin 0.4 mg PO DAILY HPI HPI Comments History of Present Illness Details Troy comes for follow-up. He denies any significant symptoms of chest pain or palpitations. Takes all his medications. Denies any prolonged irregular heartbeat. No lightheadedness, syncope. No exertional chest or shortness of breath. Recent echocardiogram shows stable moderately enlarged ascending aorta at 4.5 cm. [facility] Medical History (Updated 03/28/23 @ 12:15 by Aren Morris MD) Ascending aortic aneurysm Tongue lesion Persistent atrial fibrillation Surgical History History of hernia repair Social History Housing: House Alcohol intake: never Patient Tobacco Use Status: Never used Tobacco e-Cigarette/Vaping Use: Former Use Second Hand Smoke Exposure: No Substance Use Type: Marijuana service: No Current occupational status: retired Current occupational exposures/hazards: No Cognitive needs: No Hearing needs: No Vision needs: Yes Review of Systems Const Denies chills, Denies fatigue, Denies fever(s), Denies frequent falls, Denies weakness, Denies weight gain and Denies weight loss ENT Denies dizziness Card Denies chest pain, Denies leg edema, Denies lightheadedness, Denies palpitations, Denies dyspnea, Denies dyspnea on exertion, Denies orthopnea and Denies other (loss of consciousness) Resp Denies cough, Denies dyspnea and Denies dyspnea on exertion GI Denies hematochezia and Denies change in stool character Musc Denies abnormal gait, Denies muscle weakness, Denies numbness, Denies radiating pain into limb and Denies tingling Neuro Denies abnormal gait, Denies dizziness, Denies frequent falls, Denies numbness, Denies tingling and Denies weakness Endo Denies fatigue and Denies palpitations Physical Exam Vital Signs: Last Vital Signs Pulse 69 03/28/23 10:55 BP 120/70 03/28/23 10:55 BMI result Body Mass Index 27.3 Const General: cooperative, healthy appearing, comfortable and no acute distress Neck Neck: Yes normal visual inspection and Yes no JVD Resp Effort & Inspection: normal respiratory effort Auscultation: clear to auscultation bilaterally, no crackles, no rales, no rhonchi and no wheezes Cardio Jugular venous distension: no JVD Rate: regular rate Rhythm: regular rhythm Heart sounds: S1 normal heart sound present, S2 normal heart sound present, no gallops, no murmurs and no rubs Peripheral pulses: Peripheral pulses 2+ throughout GI Inspection: Yes normal to inspection Extrem General: Yes normal to inspection, No no pedal edema and No calf tenderness Psych Appearance: grossly normal Mental Status: mental status grossly normal Speech and movement: Normal speech and movement present Office Procedures EKG Details: EKG shows normal sinus rhythm with left axis deviation with poor R-wave progression most likely lead placement with normal intervals [id number], Complete Assessment & Plan Assessment & Plan (1) Ascending aortic aneurysm: Code(s): I71.21 - Aneurysm of the ascending aorta, without rupture Plan: Ascending aortic aneurysm at 4.5 cm. Has remained stable. We discussed about pathophysiology ascending aortic aneurysm. Advised to avoid sudden strenuous isometric exercise. Maintain regular activity level. Continue aggressively the blood pressure. Follow-up annually by echocardiogram. No surgical interventions required at this point in time. Advised to screen his kids (2) Paroxysmal atrial fibrillation: Code(s): I48.0 - Paroxysmal atrial fibrillation Plan: Paroxysmal atrial fibrillation which has remained stable. Continue to monitor clinically. No antiarrhythmic drug therapy required at this point time. Avoidance of stimulants was discussed advised to call me with any new symptoms. Continue full oral anticoagulation, currently on Eliquis 5 mg b.i.d.. Semi annual renal function test should be pursued. Will follow up in the clinic in 1 year's time, sooner p.r.n.. Thank you for allowing me to partake in his care Coding Level of Care Code Est Pt Level 4 (08006) Diagnoses Ascending aortic aneurysm I71.21 Paroxysmal atrial fibrillation I48.0 CPT Codes EKG - CPT: 04557-[id number], Complete ([id number])
== END 2023-03-28 11:29 | disposition home or self-care (01) ==
PROVIDERS: PCP Nurse Practitioner Family; Visit Provider Internal Medicine Cardiovascular Disease
DX: I71.21 Aneurysm of the ascending aorta, without rupture (principal); I48.0 Paroxysmal atrial fibrillation
CPT/HCPCS: 93010; 99214

== ENCOUNTER → 2023-03-28 10:33 | Outpatient (BNVA) | payer MEDICARE, SELFPAY | PROVIDERS: PCP Nurse Practitioner Family; Visit Provider Internal Medicine Cardiovascular Disease | DX: I71.21 Aneurysm of the ascending aorta, without rupture (principal); I48.0 Paroxysmal atrial fibrillation | CPT/HCPCS: 93005; 99212 ==

== ENCOUNTER 2023-05-25 08:56 | Outpatient (REF) | payer MEDICARE, SELFPAY ==
[2023-05-25 10:34] LABS: MANUAL DIFF FLAG NO
[2023-05-25 11:49] LABS: Basophils Percent Auto 0.3 % (0-2); Eosinophils Absolute Auto 0.2 X10*3/uL (0.0-0.4); Eosinophils Percent Auto 2.6 % (0-4); Hemoglobin 14.3 g/dl (14.0-18.0); Imm Gran Abs Auto 0.02 X10*3/uL (0.00-0.03); Imm Gran Pct Auto 0.3 % (0.0-0.4); Lymphocytes Absolute Auto 1.6 X10*3/uL (1.2-4.9); Lymphocytes Percent Auto 26.5 % (20-40); Mean Corpuscular HGB Conc 31.8 g/dl (31.0-36.0); Mean Corpuscular Hemoglobin 28.2 pg (27.0-33.0); Mean Corpuscular Volume 88.8 fL (80.0-98.0); Mean Platelet Volume 10.4 fL (9.4-12.4); Monocytes Absolute Auto 0.7 X10*3/uL (0.1-1.2); Monocytes Percent Auto 11.6 % (2-11); Neutrophils Absolute Auto 3.5 x10*3/uL (2.0-8.3); Neutrophils Percent Auto 58.7 % (45-73); Platelet Count 196 X10*3/uL (160-400); Red Blood Count 5.07 X10*6/uL (4.60-5.80); Red Cell Distribution Width 13.7 % (11.0-16.0)
[2023-05-25 12:31] LABS: Alanine Aminotransferase 19 U/L (0-40); Albumin Level 4.2 g/dL (3.5-5.0); Alkaline Phosphatase 64 U/L (39-117); Anion Gap 8 (12-20); Aspartate Amino Transferase 23 U/L (5-37); Bilirubin Total 0.7 mg/dL (0.0-1.0); Blood Urea Nitrogen 21 mg/dL (9-16); Calcium 9.6 mg/dL (8.4-10.2); Carbon Dioxide 31 mmol/L (22-29); Chloride 105 mmol/L (96-108); Cholesterol 137 mg/dL (<200); Estimated Glomerular Filt Rate > 60; Glucose Fasting 93 mg/dL (60-99); HDL Cholesterol 62 mg/dL (>40); LDL Cholesterol Calculated 61 mg/dL (<100); Potassium 4.6 mmol/L (3.3-5.1); Sodium 139 mmol/L (135-145); Total Protein 7.3 g/dL (6.5-8.0); Triglycerides 73 mg/dL (<150)
== END 2023-05-25 08:57 | disposition home or self-care (01) ==
LOC: HO.LAB 08:56
PROVIDERS: PCP Nurse Practitioner Family; Visit Provider Nurse Practitioner Family
DX: E78.5 Hyperlipidemia, unspecified (principal)
CPT/HCPCS: 36415; 80053; 80061; 85025

== ENCOUNTER 2023-06-08 09:16 | Outpatient (AMB) | payer MEDICARE, SELFPAY ==
[2023-06-08 09:17] VITALS: BP 110/80; PULSE 61; O2SAT 98; BMI 29.0
--- NOTE | 2023-06-08 09:17 | MHC.PC.OV ---
Vital Signs 06/08/23 09:17 Height 5 ft 7 in Weight 185 lb BMI 29.0 BP 110/80 Blood Pressure Location Lt brachial Position Sitting Pulse 61 Pulse Source Pulse Oximeter Pulse Oximetry (%) 98 Oxygen Delivery Method Room Air Intake Visit Reasons: 3 month f/u F/U on HLD, afib, BPH Intake Note: Patient is here to follow up on 3 months. Clinical Services Specialist Required: No Allergies No Known Allergies Allergy (Verified 06/08/23 09:26) Medication List - Last Reconciled 06/08/23 by GABINO Hurt apixaban (Eliquis) 5 mg PO BID 90 days brimonidine 0.1% (Alphagan P) 2 drps ophthalmic (eye) BID dorzolamide-timolol 22.3-6.8 mg/mL 1 drp ophthalmic (eye) BID finasteride 5 mg PO DAILY hydrocortisone 2.5% 1 appl topical BID PRN latanoprost 0.005% 1 drp ophthalmic (eye) QPM rosuvastatin 10 mg PO DAILY tamsulosin 0.4 mg PO DAILY Tobacco use date assessed: 06/08/23 Fall risk assessment: No Falls in past year Last assessed Fall Risk: 06/08/23 Dental Screening Dental Screen Date: 06/08/23 Did you have a dental visit in the last 12 months?: No Did you have a dental problem in the last 6 months where you did not have access to dental care?: No HPI 3 month f/u F/U on HLD, afib, BPH HPI Details Patient is a 77-year-old male presents today for a routine follow-up.? Medical history significant for AFib - status post cardioversion - followed by [facility], cardiomyopathy,? BPH, hyperlipidemia, and open angle glaucoma-followed by Dr. Pascual.? Patient denies shortness of breath or chest pain. Patient reports that he is compliant with medications and denies side effects. Recent blood work results reviewed with the patient. [facility] Medical History Ascending aortic aneurysm Tongue lesion Persistent atrial fibrillation Surgical History History of hernia repair Social History Housing: House Alcohol intake: never Patient Tobacco Use Status: Never used Tobacco e-Cigarette/Vaping Use: Former Use Second Hand Smoke Exposure: No Substance Use Type: Marijuana service: No Current occupational status: retired Current occupational exposures/hazards: No Cognitive needs: No Hearing needs: No Vision needs: Yes Questionnaire Thrive Questionnaire Date Thrive assessed: 07/15/22 AUDIT C Alcohol Use Questionnaire (AUDIT-C) 1. How often do you have a drink containing alcohol?: Never 2. How many drinks containing alcohol do you have on a typical day when you are drinking?: 1 or 2 3. How often do you have six or more drinks on one occasion?: Never Total Score: 0 Score Reviewed/Action Taken: No ANA LILIA-7 AMB Questionnaire ANA LILIA-7 Date ANA LILIA - 7 assessed: 11/16/22 Source: Developed by Drs. David Ortiz, Beryl Castellon, John Osborne and colleagues, with an educational evelina from [employer]. Review of Systems Const Denies body aches, Denies chills, Denies fever(s) and Denies headache(s) Eyes Denies change in vision ENT Denies dizziness, Denies otalgia, Denies headache(s), Denies nasal discharge, Denies sinus pain and Denies sore throat Card Denies chest pain, Denies edema, Denies lightheadedness and Denies dyspnea Resp Denies chest congestion, Denies cough and Denies dyspnea GI Denies constipation, Denies diarrhea, Denies nausea and Denies vomiting Denies dysuria Musc Denies myalgias Skin/Breast Denies lesions and Denies rash Neuro Denies dizziness and Denies headache(s) Physical exam (Primary Care) Vital Signs: Last Vital Signs Pulse 61 06/08/23 09:17 BP 110/80 06/08/23 09:17 Pulse Ox 98 06/08/23 09:17 Oxygen Delivery Method Room Air 06/08/23 09:17 BMI result Body Mass Index 29.0 Tobacco/Smoking Status: Tobacco use Status Tobacco use date assessed 06/08/23 06/08/23 09:18 Patient Tobacco Use Status Never used Tobacco 06/08/23 09:18 e-Cigarette/Vaping Use Former Use 06/08/23 09:18 Thrive Assessment: Date of Thrive Assessment Date Thrive assessed 07/15/22 06/08/23 09:18 Const General: cooperative and no acute distress Orientation/consciousness: patient oriented x3 HENMT Head: Yes normocephalic and Yes atraumatic Mouth: oropharynx normal and moist mucous membranes Throat: Yes posterior oropharynx normal Eyes General: appearance normal, both eyes and all related structures Neck Neck: Yes normal visual inspection and Yes full ROM Resp Effort & Inspection: normal respiratory effort and able to speak in complete sentences Auscultation: clear to auscultation bilaterally, no crackles, no rales, no rhonchi and no wheezes Cardio Rate: regular rate Rhythm: regular rhythm Heart sounds: S1 normal heart sound present, S2 normal heart sound present and no murmurs GI Auscultation: normal bowel sounds Skin General skin exam: no rashes or lesions noted Neuro General: patient oriented x3 Gait exam (Neuro): Normal gait present Extrem General: Yes full ROM and No edema Assessment and Plan Assessment & Plan (1) BPH (benign prostatic hyperplasia): Code(s): N40.0 - Benign prostatic hyperplasia without lower urinary tract symptoms Plan: Tamsulosin 0.4 mg daily Finasteride 5 mg daily (2) Hyperlipidemia: Code(s): E78.5 - Hyperlipidemia, unspecified Plan: LDL 61 04/2023 Rosuvastatin 10 mg daily Low-cholesterol diet (3) Paroxysmal atrial fibrillation: Code(s): I48.0 - Paroxysmal atrial fibrillation Plan: Eliquis 5 mg b.i.d. Continue to follow-up with cardiology Dr. Morris Patient denies shortness of breath or chest pain Plan Keep appointment with PCP as scheduled Orders: Orders Lipid Panel 3 Months E78.5 - Hyperlipidemia, unspecified Comprehensive [place]. Panel Fast 3 Months I48.0 - Paroxysmal atrial fibrillation Coding Level of Care Code Est Pt Level 4 (08659) Diagnoses BPH (benign prostatic hyperplasia) N40.0 Hyperlipidemia E78.5 Paroxysmal atrial fibrillation I48.0
== END 2023-06-08 09:39 | disposition home or self-care (01) ==
PROVIDERS: PCP Nurse Practitioner Family; Visit Provider Nurse Practitioner Family
DX: N40.0 Benign prostatic hyperplasia without lower urinary tract symptoms (principal); E78.5 Hyperlipidemia, unspecified; I48.0 Paroxysmal atrial fibrillation
CPT/HCPCS: 99214

== ENCOUNTER 2023-06-17 07:19 | Emergency (ER) | payer MEDICARE, SELFPAY ==
--- NOTE | ~2023-06-17 | CT_ITS ---
EXAMINATION: CT ABDOMEN AND PELVIS WITH CONTRAST CLINICAL INFORMATION: Bloody urine COMPARISON: None available. TECHNIQUE: Multidetector volumetric images were obtained from the superior aspect of the liver through the pubic symphysis following administration 85 mL of Omnipaque 350 intravenous contrast. Sagittal and coronal reformatted images were obtained on the technologist's workstation. Oral contrast: No This CT examination was performed using dose optimization techniques as appropriate, variously including the following: *Automated exposure control *Adjustment of mA and/or kV according to patient size (this includes techniques or standardized protocols for targeted exams where dose is matched to indication/reason for exam; i.e. extremities or head) *Use of iterative reconstruction technique DLP: 684 mGy-cm FINDINGS: LUNG BASES: Atelectatic changes at the posterior bases, right greater than left. Small nodular focus at the posterior inferior left base series 2 image 13 may reflect a small region of nodular atelectasis or scarring measuring 3.5 to 4 mm. LIVER, GALLBLADDER, AND BILIARY TREE: Tiny hypodensity of the liver series 2 image 8, too small to characterize. The gallbladder is unremarkable with no evidence of radiopaque gallstones, gallbladder wall thickening, or obvious pericholecystic inflammatory changes. PANCREAS: Unremarkable. SPLEEN: Unremarkable. ADRENAL GLANDS: Unremarkable. KIDNEYS AND URETERS: Tiny hypodensities of the kidneys bilaterally, too small to characterize. Small cyst observed in the left lower pole, for which no further follow-up recommended. No distinct nephrolithiasis or hydronephrosis. No appreciable ureteral stones. BLADDER: Superior and posterior bladder diverticula, largest seen dorsally at 5.7 cm. Soft tissue thickening at the base of the bladder measuring 2 cm transverse series 8 images 15 and 16 could potentially be related to bladder polyp/mass or a prostate impression. GASTROINTESTINAL TRACT: Occasional colonic diverticula without any acute inflammatory process. Moderate colonic fecal material. Appendix not well seen. Air-fluid levels in nondistended small bowel could be related to ileus or gastroenteritis. ABDOMINAL WALL: No significant hernia is appreciated. LYMPH NODES: No suspiciously enlarged lymphadenopathy. VASCULAR: Retroaortic left renal vein. Atherosclerotic changes. PELVIC VISCERA: Possible small prostate impression at the urinary bladder base. OSSEOUS STRUCTURES: Spondylosis and degenerative disc space narrowing. Slight anterolisthesis L4-L5. Posterior facet arthrosis. Extensive spurring versus old posttraumatic changes at the anterior superior pubic rami/symphysis pubis. Bilateral hip degenerative changes. CT/CT abdomen pelvis w IV con IMPRESSION: Multiple bladder diverticula, largest seen dorsally. Soft tissue thickening at the base of the bladder could potentially relate to bladder polyp/mass versus prostate impression. Cystoscopic evaluation recommended. Small nodular atelectasis or scar at the posterior inferior left base, although a small parenchymal nodule is not excluded. Per the 2017 revised Fleischner Society guidelines, no routine follow up is necessarily required in low-risk patients, and consideration of 12-month followup CT is recommended for patients at high-risk for the development of pulmonary neoplasm. No nephrolithiasis or obstructive uropathy. Other incidental findings as noted above. Fleischner guidelines were followed.
[2023-06-17 07:23] VITALS: BP 154/71; PULSE 68; RESP 18; TEMP 36.8; O2SAT 98; BMI 29.3
--- NOTE | 2023-06-17 07:47 | ED.MALEGU ---
HPI - Male Genitourinary General Chief complaint: Urogenital-Male Stated complaint: infected penis ? Time Seen by Provider: 06/17/23 07:30 History of Present Illness HPI Narrative: Patient is a 77-year-old male who presented today having his foreskin caught in a zipper. Patient noticed increasing swelling redness and now has an area of a ??mast. Patient also complaining of darker color urine. He denies any history of diabetes. T is sexually active with 1 partner. Been with the same partner for years. Last time sexually active about a month ago. There is no pain on urination. No fever no chills. No testicular pain. Related Data Home Medications Medication Instructions Recorded Confirmed brimonidine 0.1 % eye drops 2 drp ophthalmic (eye) BID 04/14/22 06/08/23 (Alphagan P) Previous Rx's Medication Instructions Recorded dorzolamide 22.3 mg-timolol 6.8 1 drp ophthalmic (eye) BID #10 mL 10/06/21 mg/mL eye drops hydrocortisone 2.5 % topical cream 1 appl topical BID PRN rash #20 10/29/21 grams latanoprost 0.005 % eye drops 1 drp ophthalmic (eye) QPM #2.5 mL 10/19/22 finasteride 5 mg tablet 5 mg PO DAILY #90 tabs 03/23/23 rosuvastatin 10 mg tablet 10 mg PO DAILY #90 tabs 04/26/23 tamsulosin 0.4 mg capsule 0.4 mg PO DAILY #90 caps 04/26/23 apixaban 5 mg tablet (Eliquis) 5 mg PO BID 90 days #180 tabs 05/30/23 amoxicillin 875 mg-potassium 1 tab PO Q12H 7 days #14 tabs 06/17/23 clavulanate 125 mg tablet Allergies Allergy/AdvReac Type Severity Reaction Status Date / Time No Known Allergies Allergy Verified 06/08/23 09:26 Review of Systems Review of Systems: No fever no chills no chest pain or shortness of breath no systemic PMFSH Past Medical History Medical History Ascending aortic aneurysm Tongue lesion Persistent atrial fibrillation Surgical History History of hernia repair Social History Social History Housing: House Alcohol intake: never Patient Tobacco Use Status: Never used Tobacco Smoked in Last 30 Days: No e-Cigarette/Vaping Use: Former Use Second Hand Smoke Exposure: No Substance Use Type: Marijuana Advance Directives: No Advance Directives Information Provided: No service: No Current occupational status: retired Current occupational exposures/hazards: No Cognitive needs: No Hearing needs: No Vision needs: Yes Physical Exam Vital Signs: Vital Signs: Last Vital Signs Temp 98.1 F 06/17/23 11:14 Pulse 56 06/17/23 11:14 Resp 16 06/17/23 11:14 BP 125/77 06/17/23 11:14 Pulse Ox 98 06/17/23 11:14 O2 Del Method Room Air 06/17/23 11:14 BMI result Body Mass Index 29.3 Appearance: Alert. Oriented X3. No acute distress. Eyes: Pupils equal, round and reactive to light. ENT: Pharynx normal. Neck: Normal inspection. Neck supple. No lymph nodes noted. No crepitus CVS: Normal heart rate and rhythm. Pulses normal. Normal S1 and S2 Respiratory: No respiratory distress. Breath sounds normal. No Wheezing. No rales Abdomen: Soft and nontender. No rigidity. No distention. good BS x4 Skin: Skin warm and dry. Normal skin color. Positive ulceration in the foreskin with surrounding erythema. Approximately 0.5 cm x 0.5 cm in size. No testicular pain noted. No swelling noted. No penile discharge noted Extremities: No lower extremity edema. Neurovascular intact to all extremities. No Lacerations. No Rash Neuro: Oriented X 3. No motor deficit. No sensory deficit. Moving all extermities. No slurred speech Medications Administered Discontinued Medications Generic Name Dose Route Start Last Admin Trade Name Freq PRN Reason Stop Dose Admin Iohexol 85 ml 06/17/23 10:28 06/17/23 10:28 Iohexol 350 Mg/Ml 100 Ml Infus..Btl IV 06/17/23 10:29 85 ml ONCE ONE Administration Medical Decision Making Medical Decision Making MDM Narrative: Patient presented today with having pain to the foreskin after any acute trauma from a zipper. Also having pain on urination. His urine has lots of blood in it. Question etiology. A CT scan was done. It shows evidence of a possible soft tissue thickening at the base of the bladder. A mass cannot be excluded. A copy of the CT scan report was given to him. He was told to closely follow-up with urology on an outpatient basis. Will start patient on antibiotic for the infection on the foreskin. Patient is already taking an antibiotic ointment. His bladder scan postvoid showed 230 cc of urine. No acute retention at this time. Will have patient closely follow with Dr. Rodriguez on an outpatient basis. In stable condition. Differential Diagnosis Bladder cancer, cellulitis, urinary retention Admission/Observation Consideration of admission/observation: Escalation of care including admission/observation considered No need for admission Lab Data MDM Lab Attestation statement: I reviewed the patient's lab results. 06/17/23 09:19 06/17/23 09:19 Labs: Lab Results 06/17/23 06/17/23 06/17/23 Range/Units 08:05 08:19 09:19 WBC 6.4 (4.8-10.8) X10*3/uL RBC 4.74 (4.60-5.80) X10*6/uL Hgb 13.5 L (14.0-18.0) g/dl Hct 41.9 L (42.0-52.0) % MCV 88.4 (80.0-98.0) fL MCH 28.5 (27.0-33.0) pg MCHC 32.2 (31.0-36.0) g/dl RDW 13.5 (11.0-16.0) % Plt Count 209 (160-400) X10*3/uL MPV 9.9 (9.4-12.4) fL Immature Gran % (Auto) 0.3 (0.0-0.4) % Neut % (Auto) 64.9 (45-73) % Lymph % (Auto) 21.0 (20-40) % [place] % (Auto) 11.3 H (2-11) % Eos % (Auto) 2.2 (0-4) % Baso % (Auto) 0.3 (0-2) % Lymph # (Auto) 1.3 (1.2-4.9) X10*3/uL [place] # (Auto) 0.7 (0.1-1.2) X10*3/uL Eos # (Auto) 0.1 (0.0-0.4) X10*3/uL Baso # (Auto) 0.0 (0.0-0.2) X10*3/uL Abs Immat Gran (auto) 0.02 (0.00-0.03) X10*3/uL Absolute Neuts (auto) 4.1 (2.0-8.3) x10*3/uL Absolute Nucleated RBC 0.000 (0.0-0.012) X10*3/uL Nucleated RBC % (auto) 0.0 (0.0-0.2) /100WBC PT 14.2 H (11.1-13.3) SEC INR 1.2 H (0.9-1.1) Sodium 139 (135-145) mmol/L Potassium 4.7 (3.3-5.1) mmol/L Chloride 108 (96-108) mmol/L Carbon Dioxide 26 (22-29) mmol/L Anion Gap 10 L (12-20) BUN 18 H (9-16) mg/dL Creatinine 0.97 (0.5-1.4) mg/dL Estim Creat Clear Calc 68.4 Estimated GFR > 60 Random Glucose 97 (60-115) mg/dL Calcium 9.3 (8.4-10.2) mg/dL Urine Color Yellow Urine Appearance Cloudy Urine pH 6.0 (5.0-9.0) Ur Specific Melvin 1.015 (1.005-1.025) Urine Protein Negative (Neg-Trace) mg/dL Urine Glucose (UA) Negative (Negative) mg/dL Urine Ketones Negative (Negative) mg/dL Urine Blood Moderate (2+) H (Negative) Urine Nitrite Negative (Negative) Ur Leukocyte Esterase Small (1+) H (Negative) Urine RBC >20 H (0-2) /HPF Urine WBC 0-5 (0-5) /HPF Ur Squamous Epith Cells 0-2 (0-2) /HPF Urine Bacteria 2+ (None Seen) Hyaline Casts 0-2 (0-2) /LPF Chlam trachomat DNA PCR NOT DETECTED (Not Detect.) N.gonorrhoeae DNA (PCR) NOT DETECTED (Not Detect.) Independent Interpretation I performed an independent interpretation of an: CT Scan Interpretation: Patient's CT scan showed multiple bladder diverticula like soft tissue thickening at the base of bladder to be related to mass versus prostate impression. Patient has blood in the urine. Will need to be closely follow-up. Risk for malignancy exists. Will refer patient to urology. Prescription Management I considered prescription management with: Antibiotic Antibiotics given Chronic Conditions Patient?s care impacted by: Hypertension Discharge Plan Discharge Clinical Impression: Cellulitis, Hematuria Patient Disposition: Home, Self-Care Instructions: Cellulitis (DC), Hematuria (ED) Additional Instructions: A copy of the CT scan report was given to you. A small risk of cancer exists. We found blood in your urine. Please closely follow-up with urology. Prescriptions: New amoxicillin-pot clavulanate 875-125 mg tablet 1 tab PO Q12H 7 Days Qty: 14 0RF No Action dorzolamide-timolol 22.3-6.8 mg/mL drops 1 drp ophthalmic (eye) BID Qty: 10 0RF Rx Instructions: for both eyes latanoprost 0.005 % drops 1 drp ophthalmic (eye) QPM Qty: 2.5 1RF Rx Instructions: 1 drop on each eyes finasteride 5 mg tablet 5 mg PO DAILY Qty: 90 1RF rosuvastatin 10 mg tablet 10 mg PO DAILY Qty: 90 0RF tamsulosin 0.4 mg capsule 0.4 mg PO DAILY Qty: 90 1RF Eliquis 5 mg tablet 5 mg PO BID 90 Days Qty: 180 3RF hydrocortisone 2.5 % cream 1 appl topical BID PRN (Reason: rash) Qty: 20 0RF Alphagan P 0.1 % drops 2 drp ophthalmic (eye) BID Referrals: Leander Rodriguez MD [Physician] - 06/21/23
[2023-06-17 08:17] LABS: Appearance Urine Cloudy; Color Urine Yellow; Glucose Urine UA Negative (Negative); Leukocyte Esterase Urine Small (1+) (Negative); Nitrite Urine Negative (Negative); Specific Gravity - Urine 1.015 (1.005-1.025); UMIC TRIGGER UACC YES; Urine Blood Moderate (2+) (Negative); Urine Ketones Negative (Negative); Urine Protein Negative (Neg-Trace)
[2023-06-17 08:35] LABS: Bacteria Urine 2+ (None Seen); Hyaline Casts Urine 0-2 /LPF (0-2); RBC Urine >20 /HPF (0-2); Squamous Epithelial Cell Urine 0-2 /HPF (0-2); UACC Culture Trigger YES; WBC Urine 0-5 /HPF (0-5)
[2023-06-17 08:41] VITALS: BP 130/77; PULSE 62; RESP 18; O2SAT 97
--- NOTE | 2023-06-17 08:43 | PC.NURSE ---
Addendum entered by [place] Sinclair 06/17/23 08:47: Pt is a&ox4, ambulates with steady gait. skin pwd. Pt reports catching penis on zipper Tuesday and noticed increase swelling the next day and has gotten worse. Pt states he takes medicaiton for enlarged prostate, having trouble emptying after each void is normal for him. Pt gave us urine sample, was bladder scanned 241ml, then tried again to empty bladder and after was at 235ml. Provider made aware. Original Note: Pt is a&ox4, ambulates with steady gait. skin pwd. Pt reports catching penis on zipper tuesday and noticed increase swelling the next day and has gotten worse. Pt states he takes medicaiton for enlarged prostate, having trouble emptying after each voic is normal for him. Pt gave us urine sample, was bladder scanned 241ml, then tried again to empty bladder and after was at 235ml. Provider made aware.
[2023-06-17 09:26] LABS: MANUAL DIFF FLAG NO
[2023-06-17 09:28] LABS: Basophils Percent Auto 0.3 % (0-2); Eosinophils Absolute Auto 0.1 X10*3/uL (0.0-0.4); Eosinophils Percent Auto 2.2 % (0-4); Hematocrit 41.9 % (42.0-52.0); Hemoglobin 13.5 g/dl (14.0-18.0); Imm Gran Abs Auto 0.02 X10*3/uL (0.00-0.03); Imm Gran Pct Auto 0.3 % (0.0-0.4); Lymphocytes Absolute Auto 1.3 X10*3/uL (1.2-4.9); Mean Corpuscular HGB Conc 32.2 g/dl (31.0-36.0); Mean Corpuscular Hemoglobin 28.5 pg (27.0-33.0); Mean Corpuscular Volume 88.4 fL (80.0-98.0); Mean Platelet Volume 9.9 fL (9.4-12.4); Monocytes Absolute Auto 0.7 X10*3/uL (0.1-1.2); Monocytes Percent Auto 11.3 % (2-11); Neutrophils Absolute Auto 4.1 x10*3/uL (2.0-8.3); Neutrophils Percent Auto 64.9 % (45-73); Platelet Count 209 X10*3/uL (160-400); Red Blood Count 4.74 X10*6/uL (4.60-5.80); Red Cell Distribution Width 13.5 % (11.0-16.0); White Blood Count 6.4 X10*3/uL (4.8-10.8)
--- NOTE | 2023-06-17 09:29 | PC.NURSE ---
labs drawn and sent.
[2023-06-17 09:36] LABS: INTERNATIONAL NORM RATIO 1.2 (0.9-1.1); Prothrombin Time 14.2 SEC (11.1-13.3)
[2023-06-17 09:40] LABS: Anion Gap 10 (12-20); Blood Urea Nitrogen 18 mg/dL (9-16); Calcium 9.3 mg/dL (8.4-10.2); Carbon Dioxide 26 mmol/L (22-29); Chloride 108 mmol/L (96-108); Creatinine Clr Calc Pharmacy 68.4; Estimated Glomerular Filt Rate > 60; Glucose Random 97 mg/dL (60-115); Potassium 4.7 mmol/L (3.3-5.1); Sodium 139 mmol/L (135-145)
--- NOTE | 2023-06-17 10:25 | PC.NURSE ---
Pt transported to CT
[2023-06-17] MEDS: iohexoL 350 MG/ML 100 ML INFUS..BTL 85 ML IV (10:28)
[2023-06-17 11:14] VITALS: BP 125/77; PULSE 56; RESP 16; TEMP 36.7; O2SAT 98
[2023-06-17 12:24] LABS: CT PCR NOT DETECTED (Not Detect.); NG PCR NOT DETECTED (Not Detect.)
[2023-06-17 15:26] VITALS: BP 142/67; PULSE 66; RESP 16; O2SAT 97
== END 2023-06-17 15:27 | disposition home or self-care (01) ==
PROVIDERS: Emergency Provider Emergency Medicine Emergency Medical Services
DX: N48.22 Cellulitis of corpus cavernosum and penis (principal); N48.29 Other inflammatory disorders of penis; R31.9 Hematuria, unspecified; R10.2 Pelvic and perineal pain; Z79.899 Other long term (current) drug therapy
CPT/HCPCS: 0353U; 36415; 51798; 74177; 80048; 81001; 85025; 85610; 87086; 99284; Q9967

== ENCOUNTER 2023-07-29 14:35 | Outpatient (REF) | payer MEDICARE, SELFPAY ==
[2023-07-29 16:36] LABS: Urine Cytology See Pathology rpt
== END 2023-07-29 14:36 | disposition home or self-care (01) ==
LOC: HO.LNP 14:35
PROVIDERS: Visit Provider Nurse Practitioner Family
DX: N40.0 Benign prostatic hyperplasia without lower urinary tract symptoms (principal); N28.1 Cyst of kidney, acquired; N32.3 Diverticulum of bladder; Z79.899 Other long term (current) drug therapy
CPT/HCPCS: 51798; 81003; 88112; 99202

== ENCOUNTER 2023-07-29 14:35 | Outpatient (AMB) | payer MEDICARE, SELFPAY ==
--- NOTE | 2023-07-29 14:37 | A.OFFVIS_ITS ---
Intake Intake Visit Reasons: ER F/up- incom bladder emptying, infec foreskin Intake Note: New Patient presents for initial visit ER follow up incomplete bladder emptying and infection of foreskin Urology Medications: finasteride, tamsulosin Blood Thinner: Apixaban Smoker: never tobacco, marijuana only PVR: 13ml's Airline Dispatcher Required: No Accompanied by: Self / Same As Patient Allergies No Known Allergies Allergy (Verified 07/29/23 15:38) Medication List - Last Reconciled 07/29/23 by GABINO Kenyon-SANJANA apixaban (Eliquis) 5 mg PO BID 90 days brimonidine 0.1% (Alphagan P) 2 drps ophthalmic (eye) BID dorzolamide-timolol 22.3-6.8 mg/mL 1 drp ophthalmic (eye) BID finasteride 5 mg PO DAILY netarsudil-latanoprost 0.02-0.005 % (Rocklatan) drps ophthalmic (eye) rosuvastatin 10 mg PO DAILY tamsulosin 0.4 mg PO DAILY HPI HPI Comments History of Present Illness Details Troy is a very pleasant 77-year-old male patient. He has a past medical history of ascending aortic aneurysm, tongue lesion, and persistent AFib. He presents to the office today as a new patient for a follow- up of his ER visit. In discussion with the patient today he reports having seeked emergency room care approximately 1 month ago after having caught his penile foreskin in his zipper. It appears he has since been treated for cellulitis and reports this has significantly improved. During patient's ER visit it appears a CT of the abdomen was ordered and performed. These results were reviewed with the patient today. Tiny hypodensities of the kidneys bilaterally, too small to characterize. Small cysts observed in the left lower pole, for which no follow-up imaging is recommended per radiology report. No distinct nephrolithiasis or hydronephrosis noted. Superior and posterior bladder diverticula, largest seen dorsally at 5.7 cm. Soft tissue thickening at the base of the bladder measuring 2 cm which could potentially be related to a bladder polyp/mass or prostate impression. In review of patient's chart it appears PSA 02/16--0.1. He reports being on Flomax and finasteride with urologist in [place] where he used to live and will be moving back to in September. He discusses he will soon be moving with his daughter to [place]. When asked he denies any previous nicotine dependence however does report to be smoking recreational marijuana daily typically twice a day morning and night. When asked he reports be happy with current voiding parameters on 0.4 mg of Flomax daily and 5 mg of finasteride. He currently denies any bothersome urinary issues or concerns. He denies urinary urgency, urinary frequency, incontinence, nocturia, hematuria, dysuria, foul smelling urine, changes to urinary stream, flank pain, fever, and or chills. [facility] Medical History Ascending aortic aneurysm Tongue lesion Persistent atrial fibrillation Surgical History History of hernia repair Social History Housing: House Alcohol intake: never Patient Tobacco Use Status: Never used Tobacco e-Cigarette/Vaping Use: Former Use Second Hand Smoke Exposure: No Substance Use Type: Marijuana service: No Current occupational status: retired Current occupational exposures/hazards: No Cognitive needs: No Hearing needs: No Vision needs: Yes Review of Systems Const Reports no additional complaints Eyes Reports no additional complaints ENT Reports as per HPI Card Reports as per HPI Resp Reports no additional complaints GI Reports no additional complaints Reports as per HPI Musc Reports no additional complaints Neuro Reports no additional complaints Psych Reports no additional complaints Endo Reports no additional complaints Jacky/Lymph Reports no additional complaints Aller/Immun Reports no additional complaints Physical Exam Const General: cooperative, healthy appearing, comfortable, no acute distress, well developed, alert and awake Orientation/consciousness: patient oriented x3 Limitations: no limitations HEENT Head: Yes normal to inspection, Yes normocephalic and Yes atraumatic Ears: hearing grossly normal bilaterally Eyes General: appearance normal, both eyes and all related structures Neck Neck: Yes normal visual inspection and Yes trachea midline Chest Chest palpation & inspection: normal inspection of the chest Resp Effort & Inspection: normal respiratory effort and able to speak in complete sentences Cardio Rate: regular rate GI Inspection: Yes normal to inspection General: Yes no CVA tenderness Back/Spine/Pelvis Back: no CVA tenderness Skin General skin exam: no rashes or lesions noted Neuro General: patient oriented x3 Extrem General: Yes normal to inspection Psych Appearance: grossly normal and well kempt Mental Status: mental status grossly normal Speech and movement: Normal speech and movement present and Clear speech present Affect: normal affect Attitude: cooperative Thought process: Normal thought process present Thought content: Normal thought content present Insight: Fair insight present (Psych) Judgement: Fair judgement present (Psych) Office Procedures Post Void Residual Post Residual Void Post Void Residual (PVR): 13 [id number]-Otde Void Residual by ultrasound Results AMB Urinalysis, Automated UA Leukoctes 0 Abdon/uL Last Edit by [employer] on 07/29/23 15:06 UA Nitrite Negative Last Edit by [employer] on 07/29/23 15:06 UA Urobilinogen 0.2 mg/dL Last Edit by [employer] on 07/29/23 15:06 UA Protein 15 mg/dL Last Edit by [employer] on 07/29/23 15:06 UA pH 6.0 Last Edit by [employer] on 07/29/23 15:06 UA Blood 0 Chin/uL Last Edit by [employer] on 07/29/23 15:06 UA Specific Birney 1.025 Last Edit by [employer] on 07/29/23 15:06 UA Ketone Negative Last Edit by [employer] on 07/29/23 15:06 UA Bilirubin 0 mg/dL Last Edit by [employer] on 07/29/23 15:06 UA Glucose 0 mg/dL Last Edit by [employer] on 07/29/23 15:06 Results Reviewed Results Reviewed: Laboratory Last Values Urine pH (Auto) 6.0 07/29/23 14:45 Specific Birney (Auto) 1.025 07/29/23 14:45 Urine Protein (Auto) 15 mg/dL 07/29/23 14:45 Glucose (UA)(Auto) 0 mg/dL 07/29/23 14:45 Urine Ketones (Auto) Negative 07/29/23 14:45 Urine Blood (Auto) 0 Chin/uL 07/29/23 14:45 Urine Nitrite (Auto) Negative 07/29/23 14:45 Urine Bilirubin (Auto) 0 mg/dL 07/29/23 14:45 Urine Urobilinogen (Auto) 0.2 mg/dL 07/29/23 14:45 Leukocyte Esterase (Auto) 0 Abdon/uL 07/29/23 14:45 Date of Service: 06/17/23 EXAMINATION: CT ABDOMEN AND PELVIS WITH CONTRAST FINDINGS: LUNG BASES: Atelectatic changes at the posterior bases, right greater than left. Small nodular focus at the posterior inferior left base series 2 image 13 may reflect a small region of nodular atelectasis or scarring measuring 3.5 to 4 mm. LIVER, GALLBLADDER, AND BILIARY TREE: Tiny hypodensity of the liver series 2 image 8, too small to characterize. The gallbladder is unremarkable with no evidence of radiopaque gallstones, gallbladder wall thickening, or obvious pericholecystic inflammatory changes. PANCREAS: Unremarkable. SPLEEN: Unremarkable. ADRENAL GLANDS: Unremarkable. KIDNEYS AND URETERS: Tiny hypodensities of the kidneys bilaterally, too small to characterize. Small cyst observed in the left lower pole, for which no further follow-up recommended. No distinct nephrolithiasis or hydronephrosis. No appreciable ureteral stones. BLADDER: Superior and posterior bladder diverticula, largest seen dorsally at 5.7 cm. Soft tissue thickening at the base of the bladder measuring 2 cm transverse series 8 images 15 and 16 could potentially be related to bladder polyp/mass or a prostate impression. GASTROINTESTINAL TRACT: Occasional colonic diverticula without any acute inflammatory process. Moderate colonic fecal material. Appendix not well seen. Air-fluid levels in nondistended small bowel could be related to ileus or gastroenteritis. ABDOMINAL WALL: No significant hernia is appreciated. LYMPH NODES: No suspiciously enlarged lymphadenopathy. VASCULAR: Retroaortic left renal vein. Atherosclerotic changes. PELVIC VISCERA: Possible small prostate impression at the urinary bladder base. OSSEOUS STRUCTURES: Spondylosis and degenerative disc space narrowing. Slight anterolisthesis L4-L5. Posterior facet arthrosis. Extensive spurring versus old posttraumatic changes at the anterior superior pubic rami/symphysis pubis. Bilateral hip degenerative changes. IMPRESSION: Multiple bladder diverticula, largest seen dorsally. Soft tissue thickening at the base of the bladder could potentially relate to bladder polyp/mass versus prostate impression. Cystoscopic evaluation recommended. Small nodular atelectasis or scar at the posterior inferior left base, although a small parenchymal nodule is not excluded. Per the 2017 revised Fleischner Society guidelines, no routine follow up is necessarily required in low-risk patients, and consideration of 12-month followup CT is recommended for patients at high-risk for the development of pulmonary neoplasm. No nephrolithiasis or obstructive uropathy. Assessment & Plan Assessment & Plan (1) Bladder diverticulum: Code(s): N32.3 - Diverticulum of bladder Plan In office urinalysis results reviewed with the patient today; as noted above. PVR [address] imaging results with the patient today; as noted above. Discussed at length potential causes of microscopic hematuria; discussed at length further workup of microscopic hematuria with in office cystoscopy versus surveillance monitoring; risks and benefits of these interventions were discussed at length. Continue finasteride and Flomax as prescribed. Discussed further assessment evaluation with in office cystoscopy however patient will be moving to [place] in September and reports to have a urologist there and will follow-up. Medical records provided for continuity of care Discussed bladder triggers/irritants. Follow-up as needed; or sooner with any issues, concerns, and or questions. Orders: Orders AMB Urinalysis Automated 07/29/23 Z13.9 - Encounter for screening, unspecified Urine Cytology 07/29/23 N40.0 - Benign prostatic hyperplasia without lower urinary tract symptoms AMB Post Void Residual by ultrasound 07/29/23 N40.0 - Benign prostatic hyperplasia without lower urinary tract symptoms Patient Instructions: The patient had an opportunity to ask questions regarding the treatment plan. All questions were answered. Physical exam, labs, and imaging were discussed and reviewed in detail. As well as risks, benefits, and discussion of treatment choices. No major barriers to understanding were identified. The patient expressed understanding and agreement with the above treatment plan. The patient was made aware they should contact our office by phone for worsening of their current condition, the appearance of new symptoms, or with any questions or concerns. Compliance is encouraged with any medications and follow up testing that is ordered. It is a privilege to be allowed the opportunity to participate in? your urological care.? Again, if you have any questions or concerns If you have any questions or concerns please do not hesitate to contact me. The office is [phone]. This note is constructed using voice recognition software. While every effort has been made to ensure accuracy hot man errors may have been included. Yours sincerely, SARAH Kenyon Coding Level of Care Code New Pt Level 3 (16544) Diagnoses Bladder diverticulum N32.3 CPT Codes Post Residual Void - PVR CPT Code: 41521-Mepj Void Residual by ultrasound ([id number])
== END 2023-07-29 15:31 | disposition home or self-care (01) ==
LOC: HO.HUSH 14:35
PROVIDERS: Visit Provider Nurse Practitioner Family
DX: N32.3 Diverticulum of bladder (principal)
CPT/HCPCS: 99203; 99213